=== PATIENT | female | born 1990 ===

== ENCOUNTER 2018-10-11 11:28 | Emergency (ER) | payer SELFPAY ==
[2018-10-11 11:35] VITALS: BP 137/96; PULSE 111; RESP 14; TEMP 36.7; O2SAT 99; BMI 30.1
--- NOTE | 2018-10-11 11:55 | ED.EXTPRO ---
HPI - Extremity Problem General Chief complaint: Extremity Problem,Nontraumatic Stated complaint: LT HAND PAIN Time Seen by Provider: 10/11/18 11:54 Source: patient and family Mode of arrival: ambulatory Limitations: no limitations History of Present Illness HPI Narrative: 28-year-old former smoker with history of eczema presents with her family and a chief complaint pain on her left hand, volar surface at the base of her fingers. She denies fever chills, nausea or vomiting. She has longstanding history of eczema and states on occasion she gets pustules. She has pain with range of motion, but is able to make a fist. MD Complaint: extremity pain Onset (ago): day(s) Pain Consistency: constant Location: left Quality: burning and aching Radiation: none Relieving factors: rest Exacerbating factors: range of motion Associated symptoms: denies other symptoms Related Data Previous Rx's Medication Instructions Recorded doxycycline hyclate 100 mg PO BID #20 tab 10/11/18 Allergies Allergy/AdvReac Type Severity Reaction Status Date / Time No Known Drug Allergies Allergy Verified 10/11/18 11:37 Review of Systems Review of Systems All systems reviewed & are unremarkable except as noted in HPI and below Constitutional Denies chills, Denies fever(s), Denies lethargy and Denies weakness Eyes Denies change in vision, Denies eye discharge, Denies irritation and Denies loss of vision ENT Ears, Nose, Mouth, and Throat: Denies change in voice, Denies neck pain and Denies sore throat Cardiovascular Denies chest pain, Denies irregular heart rhythm, Denies lightheadedness, Denies palpitations, Denies dyspnea, Denies dyspnea on exertion and Denies orthopnea Respiratory Denies cough, Denies dyspnea, Denies dyspnea on exertion and Denies wheezing Gastrointestinal Gastrointestinal: Denies abdominal pain, Denies change in bowel habits, Denies diarrhea, Denies nausea and Denies vomiting Genitourinary Denies hematuria, Denies flank pain, Denies urinary incontinence and Denies urinary urgency Musculoskeletal Reports limited range of motion and Denies neck pain Integumentary/Breasts Denies pruritus, Denies erythema, Denies rash, Reports skin swelling and Denies wounds Comments: pustules at base of Middle/Ring fingers Neurologic Denies confusion, Denies loss of vision and Denies weakness Psychiatric Denies anxiety, Denies confusion, Denies depression, Denies homicidal ideation and Denies suicidal ideation Endocrine Denies palpitations Hematologic/Lymphatic Denies easy bruising Allergic/Immunologic Denies wheezing [facility] Medical History Eczema (Acute) Social History Smoking Status: Former smoker Exam Narrative Exam Narrative: GEN: AOx3 and in mild distress EYES: Pupils are equal, round, and reactive to light and accommodation. Extraoccular muscles are intact bilaterally. There is no subconjunctival hemorrhage or exudate. CHEST: Lungs are clear to auscultation bilaterally and free of wheezes, rales, or rhonchi. Heart rate is regular rhythm, there are no murmurs, clicks, rubs, or gallops. There is no chest wall tenderness. ABD: Abdomen is soft and nontender. There is no guarding or rebound. Bowel sounds are normal in all 4 quadrants. There is no mass or organomegaly. EXT: Full painless ROM of all extremities with no loss of sensation or strength. SKIN: Intact pustules noted at the base, on volar surface middle and index fingers, no signs of flexor tenosynovitis such as sausage finger, finger stuck in flexion, painful passive extension Initial Vital Signs Initial Vital Signs: Vital Signs Temperature 98.1 F 10/11/18 11:35 Pulse Rate 111 H 10/11/18 11:35 Respiratory Rate 14 10/11/18 11:35 Blood Pressure 137/96 H 10/11/18 11:35 Pulse Oximetry 99 10/11/18 11:35 Procedures Abscess I/D Site: hand Side (if applicable): left Amount of fluid expressed (mL): 0.5 Course Orders Ordered: ED Orders 10/11/18 13:20 Wound Culture and Gram Stain Stat Vital Signs - 8 hr 10/11/18 11:35 Temperature 98.1 F Pulse Rate 111 H Respiratory Rate 14 Blood Pressure 137/96 H Pulse Oximetry 99 MDM - Extremity (Nontraumatic) MDM Narrative Medical decision making narrative: Pustular eczema considered but thought less likely given rapid onset with pain and erythema, I and D resulted in minimal purulent fluid which is sent to for culture. Discharge Plan Departure Patient Disposition: Home Clinical Impression: Eczema, pustular Discharge Date/Time: 10/11/18 12:37 Interventions: ED Discharge Assessment Last Done: 10/11/18 12:30 Instructions: DI for Skin Abscess Activity Restrictions/Additional Instructions: *You have been diagnosed with [ pustular eczema, possibly with secondary infection ] *What to do: *Take medications as directed *Follow up with your primary care provider in 2-3 days, call for an appointment. Let them know you were seen in the Emergency Department and that we ask that you be seen in follow up *Return to ER if you should have any new, worsening or concerning symptoms, such as [ worsening pain, swelling, fever, shaking chills or other concerning symptoms] Prescriptions: New doxycycline hyclate 100 mg tablet 100 mg PO BID Qty: 20 RF: 0
== END 2018-10-11 12:37 | disposition home or self-care (01) ==
PROVIDERS: Emergency Provider Emergency Medicine
DX: L30.9 Dermatitis, unspecified (principal); L30.3 Infective dermatitis
CPT/HCPCS: 87070; 87077; 87147; 87205; 99282; 99283